=== PATIENT | male | born 1980 | race Caucasian/White ===

== ENCOUNTER 2019-12-29 11:27 | Emergency (ER) | payer MEDICAID ==
[~2019-12-29] VITALS: Ht 180.3 cm; Wt 63.0 kg
[2019-12-29 11:44] VITALS: BP 171/98
[2019-12-29] MEDS ORDERED: GABA-534 PO (12:19)
--- NOTE | 2019-12-29 12:42 | NUR ---
Patient seen and assessed by provider.
== END 2019-12-29 12:43 | disposition home or self-care (01) ==
LOC: ER 11:28
DX: F19.10 Other psychoactive substance abuse, uncomplicated (principal); F10.10 Alcohol abuse, uncomplicated; Z13.89 Encounter for screening for other disorder; R00.0 Tachycardia, unspecified; I11.0 Hypertensive heart disease with heart failure; I50.9 Heart failure, unspecified; Z72.89 Other problems related to lifestyle; Z79.899 Other long term (current) drug therapy; R45.1 Restlessness and agitation
CPT/HCPCS: 99283